=== PATIENT | female | born 2000 | race Caucasian/White ===

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

== ENCOUNTER 2020-07-03 05:11 | Inpatient (IN) | payer MEDICAID ==
[2020-07-03] MEDS: Lactated Ringers 1,000 ML IV SCH ×4 (06:40→16:45)
--- NOTE | 2020-07-03 06:43 | PCM.PREANE ---
Preanesthetic Assessment - Anesthesia/Transfusion/Family Hx Anesthesia History: Prior Anesthesia Without Reaction Other Type of Anesthesia Reaction Comment: "my mother woke up during her c/section" Family History of Anesthesia Reaction: No Transfusion History: No Prior Transfusion(s) Intubation History: Unknown - Review of Systems General: No Symptoms Pulmonary: No Symptoms Cardiovascular: No Symptoms Gastrointestinal: No Symptoms Neurological: No Symptoms Other: Reports: None - Physical Assessment Height: 5 ft 3 in Weight: 101.151 kg ASA Class: 2 Mental Status: Alert & Oriented x3 Airway Class: Mallampati = 2 Dentition: Reports: Normal Dentition Thyro-Mental Finger Breadths: 3 Mouth Opening Finger Breadths: 2 ROM/Head Extension: Full Lungs: Clear to Auscultation, Normal Respiratory Effort Cardiovascular: Regular Rate, Regular Rhythm - Allergies Allergies/Adverse Reactions: Allergies Allergy/AdvReac Type Severity Reaction Status Date / Time diclofenac Allergy Rash Verified 06/27/20 07:40 tramadol Allergy Hives Verified 06/27/20 07:40 - Blood Blood Available: No - Anesthesia Plan Pre-Op Medication Ordered: None - Acknowledgements Anesthesia Type Planned: Spinal (general anesthesia back-up plan) Pt an Appropriate Candidate for the Planned Anesthesia: Yes Alternatives and Risks of Anesthesia Discussed w Pt/Guardian: Yes Pt/Guardian Understands and Agrees with Anesthesia Plan: Yes PreAnesthesia Questionnaire - Past Health History Medical/Surgical History: Denies Medical/Surgical History HEENT History: Reports: None Cardiovascular History: Reports: None Respiratory History: Reports: None Gastrointestinal History: Reports: GERD Genitourinary History: Reports: None [place] F[employer] History: Reports: 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, 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 History: Reports: Fracture Other 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 History: hx of fx finger Neurological History: Reports: None Psychiatric History: Reports: Anxiety, Depression, PTSD Endocrine/Metabolic History: Reports: Obesity/BMI 30+ Hematologic History: Reports: None Immunologic History: Reports: None Oncologic (Cancer) History: Reports: None Dermatologic History: Reports: Eczema - Infectious Disease History Infectious Disease History: Reports: None Other Infectious Disease History: chlyamida - Past Surgical History Head Surgeries/Procedures: Reports: None HEENT Surgical History: Reports: Adenoidectomy, Myringotomy w Tube(s), Tonsillectomy Cardiovascular Surgical History: Reports: None Respiratory Surgical History: Reports: None GI Surgical History: Reports: Appendectomy, Cholecystectomy Female Surgical History: Reports: Section Other Female Surgeries/Procedures: laparoscopy with ovarian cystectomy Endocrine Surgical History: Reports: None Neurological Surgical History: Reports: Laminectomy 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 Surgical History: Reports: None Oncologic Surgical History: Reports: None - SUBSTANCE USE Tobacco Use Status *Q: Light Tobacco User Tobacco Use Within Last Twelve Months: Cigarettes - HOME MEDS Home Medications: Home Meds Pnv No.95/Ferrous Fum/Folic AC [ Vitamin Tablet] 1 tab PO DAILY 06/27/20 [History]
[2020-07-03] MEDS ORDERED: ceFAZolin 2 GM in Premix Bag 1 BAG IV ONE (06:54)
[2020-07-03] MEDS ORDERED: Sodium Chloride 0.9% 10 ML Syringe FLUSH PRN (06:54)
[2020-07-03] MEDS ORDERED: Citric Acid/Sodium Citrate Solution 30 ML Cup PO ONE (06:54)
[2020-07-03] MEDS ORDERED: Sodium Chloride 0.9% 2.5 ML Syringe FLUSH PRN (06:54)
[2020-07-03] MEDS ORDERED: Sodium Chloride 0.9% 10 ML SDV IV PRN (06:54)
[2020-07-03] MEDS ORDERED: Oxytocin/0.9 % Sodium Chloride 30 UNIT/500 ML BAG IV SCH (07:00)
[2020-07-03] MEDS ORDERED: Octyl 2-Cyanoacrylate 1 Tube ONE (07:33)
[2020-07-03] MEDS ORDERED: Morphine PF 10 MG/10 ML SDV ONE (07:45)
[2020-07-03] MEDS ORDERED: ceFAZolin/Dextrose,Iso-Osmotic 2 GM/50 ML Duplex Bag IV ONE (07:45)
--- NOTE | 2020-07-03 08:00 | PCM.LDHP ---
L&D History of Present Illness - General Date of Service: 07/03/20 Admit Problem/Dx: Patient Status Order with Admit Dx/Problem 07/03/20 06:54 Patient Status [ADT] Routine Admission Diagnosis/Problem Admission Diagnosis/Problem Source of Information: Patient History Limitations: Reports: No Limitations - History of Present Illness Introduction:: 19yo @ 39w GA here for scheduled . H/o prior emergency for distress. Patient smokes 3-4cig per day. This was otherwise uncomplicated. Denies Ctx, VB, LOF A positive, RI, GBS negative. 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: Reports: 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, 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 History: Reports: Fracture Other 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 History: hx of fx finger Neurological History: Reports: None Psychiatric History: Reports: Anxiety, Depression, PTSD Endocrine/Metabolic History: Reports: Obesity/BMI 30+ Hematologic History: Reports: None Immunologic History: Reports: None Oncologic (Cancer) History: Reports: None Dermatologic History: Reports: Eczema - Infectious Disease History Infectious Disease History: Reports: None Other Infectious Disease History: chlyamida - Past Surgical History Head Surgeries/Procedures: Reports: None HEENT Surgical History: Reports: Adenoidectomy, Myringotomy w Tube(s), Tonsillectomy Cardiovascular Surgical History: Reports: None Respiratory Surgical History: Reports: None GI Surgical History: Reports: Appendectomy, Cholecystectomy Female Surgical History: Reports: Section Other Female Surgeries/Procedures: laparoscopy with ovarian cystectomy Endocrine Surgical History: Reports: None 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 Surgical History: Reports: None Oncologic Surgical History: Reports: None Social & Family History - Family History Family Medical History: No Pertinent Family History HEENT: Reports: None Cardiac: Reports: MA Respiratory: Reports: Asthma GI: Reports: Cholelithiasis : Reports: None OBGYN: Reports: 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, 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: Reports: None Neurological: Reports: None Psychiatric: Reports: Anxiety, Depression Endocrine/Metabolic: Reports: Diabetes, Type I, Diabetes, type II Hematologic: Reports: None Immunologic: Reports: None Dermatologic: Reports: Eczema Oncologic: Reports: Breast - Tobacco Use Tobacco Use Status *Q: Current Every Day Tobacco User Years of Tobacco use: 9 Packs/Tins Daily: 0.2 Second Hand Smoke Exposure: No - Caffeine Use Caffeine Use: Reports: Soda - Recreational Drug Use Recreational Drug Use: No Drug Use in Last 12 Months: No H&P Review of Systems - Review of Systems: Review Of Systems: See Below General: Reports: No Symptoms HEENT: Reports: No Symptoms Pulmonary: Reports: No Symptoms Cardiovascular: Reports: No Symptoms Gastrointestinal: Reports: No Symptoms Genitourinary: Reports: No Symptoms 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: Reports: No Symptoms Skin: Reports: No Symptoms Psychiatric: Reports: No Symptoms Neurological: Reports: No Symptoms Hematologic/Lymphatic: Reports: No Symptoms Immunologic: Reports: No Symptoms L&D Exam - Exam Exam: See Below - Vital Signs Weight: 108.862 kg - OB Specific Contraction Intensity: Irritability Movement: Active Heart Tones: Present Heart Tones per Min: 132 Heart Rate (FHR) Variability: Moderate (6-25 bmp) Presentation: Vertex Estimated Weight: 8lbs - Exam General: Alert, Oriented Lungs: Normal Respiratory Effort Cardiovascular: Regular Rate GI/Abdominal Exam: Soft Extremities: Normal Inspection Psychiatric: Alert, Normal Affect, Normal Mood - Patient Data Lab Results Last 24 hrs: Laboratory Results - last 24 hr 07/03/20 07/03/20 Range/Units 06:05 06:05 WBC 13.85 H (4.0-11.0) K/uL RBC 4.04 L (4.30-5.90) M/uL Hgb 11.9 L (12.0-16.0) g/dL Hct 36.1 (36.0-46.0) % MCV 89.4 (80.0-98.0) fL MCH 29.5 (27.0-32.0) pg MCHC 33.0 (31.0-37.0) g/dL RDW Std Deviation 43.0 (28.0-62.0) fl RDW Coeff of [place] 13 (11.0-15.0) % Plt Count 242 (150-400) K/uL MPV 10.20 (7.40-12.00) fL Nucleated RBC % 0.0 /100WBC Nucleated RBCs # 0 K/uL Blood Type A POSITIVE Antibody Screen NEGATIVE Result Diagrams: 07/03/20 06:05 - Problem List (1) Term SNOMED Code(s): 52286405 ICD Code: Z34.90 - ENCNTR FOR SUPRVSN OF NORMAL , UNSP, UNSP TRIMESTER Status: Acute Priority: High Current Visit: Yes (2) Previous section SNOMED Code(s): 017008619 ICD Code: Z98.891 - HISTORY OF UTERINE SCAR FROM PREVIOUS SURGERY Status: Acute Priority: High Current Visit: Yes Problem List Initiated/Reviewed/Updated: Yes Orders Last 24hrs: 19yo @ 39WGA here for repeat . Consents signed Routine pre-op orders placed. Active Orders 24 hr Category Date Time Status Patient Status [ADT] Routine ADT 07/03/20 06:54 Active Non Stress Test [RC] PER UNIT ROUTINE Care 07/03/20 06:54 Active Notify Provider Vital Signs [RC] PRN Care 07/03/20 06:56 Active Procedure Site Prep Instruct [RC] ASDIRECTED Care 07/03/20 06:54 Active Up ad [place] [RC] ASDIRECTED Care 07/03/20 06:54 Active Verify Patient Consent Obtain [RC] ASDIRECTED Care 07/03/20 06:54 Active Vital Signs [RC] PER UNIT ROUTINE Care 07/03/20 06:54 Active RPR (SYPHILIS SERO) W/ RFLX [REF] Routine Lab 07/03/20 06:05 Received Lactated Ringers [Ringers, Lactated] 1,000 ml Med 07/03/20 07:00 Active IV BOLUS Oxytocin/0.9 % Sodium Chloride [Oxytocin 30 Unit/500 ML Med 07/03/20 07:00 Active -NS] 30 unit in 500 ml IV TITRATE Sodium Chloride 0.9% [Normal Saline] Med 07/03/20 06:54 Active 10 ml IV ASDIRECTED PRN Sodium Chloride 0.9% [Saline Flush] Med 07/03/20 06:54 Active 10 ml FLUSH ASDIRECTED PRN Sodium Chloride 0.9% [Saline Flush] Med 07/03/20 06:54 Active 2.5 ml FLUSH ASDIRECTED PRN Peripheral IV Insertion Adult [OM.PC] Routine Oth 07/03/20 06:54 Ordered Schedule Procedure [COMM] Per Unit Routine Oth 07/03/20 06:54 Ordered Resuscitation Status Routine Resus Stat 07/03/20 06:54 Ordered Medication Orders Oxytocin/Sodium Chloride (Oxytocin 30 Unit/500 Ml-Ns) 30 unit in 500 mls @ 250 mls/hr IV TITRATE CLARA Lactated Ringer's (Ringers, Lactated) 1,000 mls @ 500 mls/hr IV BOLUS CLARA Last Admin: 07/03/20 07:30 Dose: 999 mls/hr Documented by: Infusion: 07/03/20 07:30 Dose: 999 mls/hr Documented by: Admin: 07/03/20 06:40 Dose: 999 mls/hr Documented by: CRISTINA Sodium Chloride (Saline Flush) 10 ml FLUSH ASDIRECTED PRN PRN Reason: Keep Vein Open Sodium Chloride (Saline Flush) 2.5 ml FLUSH ASDIRECTED PRN PRN Reason: Keep Vein Open Sodium Chloride (Normal Saline) 10 ml IV ASDIRECTED PRN PRN Reason: IV Use
[2020-07-03] MEDS ORDERED: ePHEDrine 50 MG/ML SDV ONE (08:20)
[2020-07-03] MEDS ORDERED: Ondansetron 4 MG/2 ML SDV ONE (08:20)
[2020-07-03] MEDS ORDERED: diphenhydrAMINE 50 MG/ML SDV IVPUSH PRN ×2 (08:33→08:51)
[2020-07-03] MEDS ORDERED: Naloxone 0.4 MG/ML Syringe IVPUSH PRN (08:33)
[2020-07-03] MEDS ORDERED: Acetaminophen/HYDROcodone 325-5 MG Tab PO PRN (08:35)
[2020-07-03] MEDS ORDERED: Acetaminophen/oxyCODONE 325-5 MG Tab PO PRN ×2 (08:35→08:51)
--- NOTE | 2020-07-03 08:44 | PCM.SN.2 ---
- Free Text/Narrative Note: Patient in sitting position for spinal. Spinal done with sterile technique. Patient's back prepped with chlohexidine and draped. 1% lidocaine 3 ml for skin infiltration at l3-l4. 25 gauge pencan +csf, no heme, no paresthesias. 0.75% hyperbaric bupivacaine 1.5 ml with duramorph 0.2 mg given intrathecally at 0804. T6 level. patient was able to communicate throughout the entire procedure and tolerated it very well. 2 attempts.
[2020-07-03] MEDS ORDERED: Dexamethasone 4 MG/ML 5 ML MDV ONE (08:46)
[2020-07-03] MEDS ORDERED: Methylergonovine 0.2 MG/1 ML Amp IM PRN (08:51)
[2020-07-03] MEDS ORDERED: Ibuprofen 800 MG Tab PO PRN (08:51)
[2020-07-03] MEDS ORDERED: Lanolin 100% Cream 7 GM Tube TOP PRN (08:51)
[2020-07-03] MEDS ORDERED: Bisacodyl 10 MG Supp RECTAL PRN (08:51)
[2020-07-03] MEDS ORDERED: Oxytocin 10 Units/1 ML SDV IM PRN (08:51)
[2020-07-03] MEDS ORDERED: Tranexamic Acid 1,000 MG in Sodium Chloride 0.9% 100 ML IV PRN (08:51)
[2020-07-03] MEDS ORDERED: Misoprostol 200 MCG Tab RECTAL PRN (08:51)
--- NOTE | 2020-07-03 08:51 | PCM.OPNOTE ---
- General Post-Op/Procedure Note Date of Surgery/Procedure: 07/03/20 Operative Procedure(s): Repeat C/section. Pre Op Diagnosis: [id number] previous C/section. Post-Op Diagnosis: Same Anesthesia Technique: Spinal Primary Surgeon: Domenico Prather Flat Ironer: Niesha Lieberman EBL in mLs: 750 Complications: None Condition: Good
--- NOTE | 2020-07-03 10:29 | PCM.POSTAN ---
POST ANESTHESIA ASSESSMENT - MENTAL STATUS Mental Status: Alert, Oriented - RESPIRATORY Respiratory Status: Respiratory Rate WNL, Airway Patent, O2 Saturation Stable - CARDIOVASCULAR CV Status: Pulse Rate WNL, Blood Pressure Stable - GASTROINTESTINAL GI Status: No Symptoms - PAIN Pain Score: 2 - POST OP HYDRATION Hydration Status: Adequate & Stable - OBSERVATIONS Free Text/Narrative:: The patient appears comfortable and in no acute distress. There were no apparent anesthetic complications at this time. Discharge to floor per criteria.
--- NOTE | 2020-07-03 11:24 | OR ---
SURGEON: Domenico Prather MD DATE OF PROCEDURE: 07/03/2020 PREOPERATIVE DIAGNOSIS: Intrauterine at 39 weeks, previous section. POSTOPERATIVE DIAGNOSIS: Intrauterine at 39 weeks, previous section. OPERATION PERFORMED: Repeat low transverse section. EDGE DYER: Niesha Lieberman, certified nurse gold leaf printer. ANESTHESIA: Spinal, Dr. Lieberman and Lyndsay Sal. ESTIMATED BLOOD LOSS: 750 mL. COMPLICATIONS: None. FINDING: Male fetus. score reported to be 8 and 9. The weight is not available. Normal uterus, tubes, and ovaries. INDICATION FOR SURGERY: The patient had a previous section. She is admitted for elective repeat section. PROCEDURE IN DETAIL: Patient was brought to the OR, properly identified. After adequate level of spinal anesthesia with a Hilario catheter in the bladder, the patient was prepped and draped in sterile fashion as usual. A low transverse Pfannenstiel skin incision was done through the old scar. Sarah fascia and rectus fascia were opened in direction of the incision. The 2 recti muscles were and peritoneal cavity was entered. Bladder flap was raised in the usual manner pushing the bladder away from the lower uterine segment. A low transverse uterine incision was done and extended manually with the hand. Fetus was in a vertex position, delivered without any problem, cried immediately, and handed to the resuscitating team. Then, the placenta delivered spontaneous, complete, and intact and repair of the lower uterine segment was done with 2-0 Vicryl continuous interlocking in 2 layers. The peritoneal cavity was evacuated completely from all blood and blood clot and closed with 3-0 Vicryl continuous. The rectus fascia was closed with #1 PDS continuous interlocking in double strand and Sarah's fascia with 3-0 Vicryl continuous, the skin was closed with 3-0 in a subcuticular fashion. A DARRELL dressing was used for the dressing on this patient. Instrument and sponge count was correct. The patient tolerated the procedure well, went to recovery room in stable general condition. DOREEN / TYLER /[id number]
[2020-07-03] MEDS: Ketorolac 30 MG/ML SDV IVPUSH SCH ×2 (14:53→21:59)
[2020-07-03] MEDS: Ondansetron 4 MG/2 ML SDV IVPUSH PRN ×2 (16:45→22:07)
[2020-07-03] MEDS ORDERED: Scopolamine 1.5 MG Transdermal Patch TRDERM PRN (20:15)
[2020-07-03] MEDS ORDERED: Metoclopramide 10 MG/2 ML SDV IVPUSH ONE (20:16)
[2020-07-04] MEDS: Lactated Ringers 1,000 ML IV SCH (01:03)
[2020-07-04] MEDS: Ketorolac 30 MG/ML SDV IVPUSH SCH ×3 (04:50→10:58)
--- NOTE | 2020-07-04 08:02 | PCM48HPAN ---
Post Anesthesia Note - EVALUATION WITHIN 48HRS OF ANESTHETIC Vital Signs in Normal Range: Yes Patient Participated in Evaluation: Yes Respiratory Function Stable: Yes Airway Patent: Yes Cardiovascular Function Stable: Yes Hydration Status Stable: Yes Pain Control Satisfactory: Yes Nausea and Vomiting Control Satisfactory: Yes Mental Status Recovered: Yes Vital Signs: Last Vital Signs Temp 37.6 C 07/04/20 04:30 Pulse 64 07/04/20 04:30 Resp 16 07/04/20 06:00 BP 100/40 L 07/04/20 04:30 Pulse Ox 94 L 07/04/20 06:00 - COMMENTS/OBSERVATIONS Free Text/Narrative:: The patient states that her n/v and pain are controlled with medications. However, the benadryl has not helped and nubain is not available due to a national shortage. The patient understands and is able to tolerate the itching at this time. She has no other complaints. She is discharged from anesthesia care.
--- NOTE | 2020-07-04 09:23 | PCM.PNPP ---
- General Info Date of Service: 07/04/20 Functional Status: Reports: Pain Controlled - Review of Systems General: Reports: No Symptoms HEENT: Reports: No Symptoms Pulmonary: Reports: No Symptoms Cardiovascular: Reports: No Symptoms Gastrointestinal: Reports: No Symptoms Genitourinary: Reports: No Symptoms 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: Reports: No Symptoms Skin: Reports: No Symptoms Neurological: Reports: No Symptoms Psychiatric: Reports: No Symptoms - General Info Date of Service: 07/04/20 - Patient Data Vital Signs - Most Recent: Last Vital Signs Temp 36.6 C 07/04/20 07:54 Pulse 56 L 07/04/20 07:54 Resp 20 07/04/20 07:54 BP 101/55 L 07/04/20 09:00 Pulse Ox 96 07/04/20 07:54 Weight - Most Recent: 108.862 kg I&O - Last 24 Hours: Intake & Output 07/03/20 07/04/20 07/04/20 22:59 06:59 14:59 Output Total 2150 725 Balance -2150 -725 Lab Results - Last 24 Hours: Laboratory Results - last 24 hr 07/04/20 Range/Units 05:44 Hgb 9.7 L (12.0-16.0) g/dL Hct 29.9 L (36.0-46.0) % Med Orders - Current: Current Medications Hydrocodone Bitart/Acetaminophen ([place] 325-5 Mg) 2 tab PO Q6H PRN PRN Reason: Pain (moderate 4-6) Bisacodyl (Dulcolax) 10 mg RECTAL ONETIME PRN PRN Reason: Constipation Diphenhydramine HCl (Benadryl) 25 mg IVPUSH Q6H PRN PRN Reason: Itching or Nausea Docusate Sodium (Colace) 100 mg PO BID CLARA Emollient Ointment (Lansinoh Hpa) 0 gm TOP ASDIRECTED PRN PRN Reason: Sore Nipples Oxytocin/Sodium Chloride (Oxytocin 30 Unit/500 Ml-Ns) 30 unit in 500 mls @ 250 mls/hr IV TITRATE CLARA Lactated Ringer's (Ringers, Lactated) 1,000 mls @ 500 mls/hr IV BOLUS [facility] Last Admin: 07/03/20 07:30 Dose: 999 mls/hr Documented by: Lactated Ringer's (Ringers, Lactated) 1,000 mls @ 125 mls/hr IV ASDIRECTED CLARA Last Admin: 07/04/20 01:03 Dose: 125 mls/hr Documented by: Tranexamic Acid 1,000 mg/ (Sodium Chloride) 110 mls @ 660 mls/hr IV ONETIME PRN PRN Reason: Bleeding Ibuprofen (Motrin) 800 mg PO Q8H PRN PRN Reason: mild pain or fever Methylergonovine Maleate (Methergine) 0.2 mg IM ONETIME PRN PRN Reason: Excessive Vaginal Bleeding Misoprostol (Cytotec) 1,000 mcg RECTAL ONETIME PRN PRN Reason: excessive bleeding Ondansetron HCl (Zofran) 4 mg IVPUSH Q4H PRN PRN Reason: Nausea/Vomiting Last Admin: 07/03/20 22:07 Dose: 4 mg Documented by: Oxycodone/Acetaminophen (Percocet 325-5 Mg) 1 tab PO ONETIME PRN PRN Reason: Pain (moderate 4-6) Oxycodone/Acetaminophen (Percocet 325-5 Mg) 1 tab PO Q4H PRN PRN Reason: Pain (moderate 4-6) Oxycodone/Acetaminophen (Percocet 325-5 Mg) 2 tab PO Q4H PRN PRN Reason: Pain (moderate 4-6) Oxytocin (Pitocin) 10 unit IM ASDIRECTED PRN PRN Reason: Excessive Vaginal Bleeding Scopolamine (Transderm-Scop) 1.5 mg TRDERM Q72H PRN PRN Reason: Nausea/Vomiting Last Admin: 07/03/20 20:41 Dose: 1.5 mg Documented by: Sodium Chloride (Saline Flush) 10 ml FLUSH ASDIRECTED PRN PRN Reason: Keep Vein Open Sodium Chloride (Saline Flush) 2.5 ml FLUSH ASDIRECTED PRN PRN Reason: Keep Vein Open Sodium Chloride (Normal Saline) 10 ml IV ASDIRECTED PRN PRN Reason: IV Use Discontinued Medications Cefazolin Sodium/Dextrose (Ancef) Confirm Administered Dose 2 gm IV .STK-MED ONE Stop: 07/03/20 07:46 Citric Acid/Sodium Citrate (Bicitra Solution) 30 ml PO ONETIME ONE Stop: 07/03/20 06:55 Last Admin: 07/03/20 07:49 Dose: 30 ml Documented by: Dexamethasone (Dexamethasone) Confirm Administered Dose 20 mg .ROUTE .STK-MED ONE Stop: 07/03/20 08:47 Diphenhydramine HCl (Benadryl) 25 mg IVPUSH Q4H PRN PRN Reason: Itching Stop: 07/04/20 08:34 Last Admin: 07/04/20 00:59 Dose: 25 mg Documented by: Ephedrine Sulfate (Ephedrine Sulfate) Confirm Administered Dose 50 mg .ROUTE .STK-MED ONE Stop: 07/03/20 08:21 Cefazolin Sodium/Dextrose 2 gm (/ Premix) 50 mls @ 100 mls/hr IV ONETIME ONE Stop: 07/03/20 07:23 Ketorolac Tromethamine (Toradol) 30 mg IVPUSH Q6H CLARA Stop: 07/04/20 09:01 Last Admin: 07/04/20 04:50 Dose: 30 mg Documented by: Metoclopramide HCl (Reglan) 10 mg IVPUSH ONETIME ONE Stop: 07/03/20 20:17 Last Admin: 07/03/20 20:42 Dose: 10 mg Documented by: Morphine Sulfate (Duramorph Pf) Confirm Administered Dose 10 mg .ROUTE .STK-MED ONE Stop: 07/03/20 07:46 Naloxone HCl (Narcan) 0.1 mg IVPUSH ONETIME PRN PRN Reason: Respiratory Depression Stop: 07/04/20 08:34 Octyl Cyanoacrylate (Dermabond Advance) Confirm Administered Dose 1 applic .ROUTE .STK-MED ONE Stop: 07/03/20 07:34 Ondansetron HCl (Zofran) Confirm Administered Dose 4 mg .ROUTE .STK-MED ONE Stop: 07/03/20 08:21 - Interaction Infant Disposition, : in Room with Family Interaction: Holding Infant Feeding: Attempted ; Nursed Fair/Poor Support Person: Significant Other - Recovery Exam Fundal Tone: Firm Fundal Level: At Umbilicus Fundal Placement: Midline Lochia Amount: Scant Lochia Color: Rubra/Red Bladder Status: Indwelling Catheter in Place - Exam General: Alert, Oriented HEENT: Pupils Equal Neck: Supple Lungs: Clear to Auscultation, Normal Respiratory Effort Cardiovascular: Regular Rate, Regular Rhythm GI/Abdominal Exam: Normal Bowel Sounds, Soft, Non-Tender, No Organomegaly, No Distention, No Abnormal Bruit, No Mass, Pelvis Stable Extremities: Normal Inspection, Normal Range of Motion, Non-Tender, No Pedal Edema, Normal Capillary Refill Skin: Warm, Dry, Intact Wound/Incisions: Healing Well Neurological: No New Focal Deficit Psy/Mental Status: Alert, Normal Affect, Normal Mood - Problem List Review Problem List Initiated/Reviewed/Updated: Yes - My Orders Last 24 Hours: My Active Orders 07/03/20 08:51 Patient Status [ADT] Routine Ambulate [RC] PER UNIT ROUTINE Communication Order [RC] PER UNIT ROUTINE Communication Order [RC] PER UNIT ROUTINE Communication Order [RC] Per Unit Routine May Shower [RC] ASDIRECTED RT Incentive Spirometry [RC] Q2HWA Vital Signs [RC] PER UNIT ROUTINE Acetaminophen/oxyCODONE [Percocet 325-5 MG] 1 tab PO Q4H PRN Acetaminophen/oxyCODONE [Percocet 325-5 MG] 2 tab PO Q4H PRN Ibuprofen [Motrin] 800 mg PO Q8H PRN Lanolin [Lansinoh HPA] See Dose Instructions TOP ASDIRECTED PRN Methylergonovine [Methergine] 0.2 mg IM ONETIME PRN Ondansetron [Zofran] 4 mg IVPUSH Q4H PRN Oxytocin [Pitocin] 10 unit IM ASDIRECTED PRN Tranexamic Acid [Cyklokapron] 1,000 mg Sodium Chloride 0.9% [Normal Saline] 100 ml IV ONETIME bisacodyL [Dulcolax] 10 mg RECTAL ONETIME PRN diphenhydrAMINE [Benadryl] 25 mg IVPUSH Q6H PRN miSOPROStoL [Cytotec] 1,000 mcg RECTAL ONETIME PRN Assess Lochia [WOMSER] Per Unit Routine Assess Uterine Involution [WOMSER] Per Unit Routine Breast Pump [WOMSER] Per Unit Routine Peripheral IV Discontinue [OM.PC] Routine Sequential Compression Device [OM.PC] Per Unit Routine 07/03/20 08:52 Antiembolic Devices [RC] PER UNIT ROUTINE 07/03/20 09:00 Docusate Sodium [Colace] 100 mg PO BID Lactated Ringers [Ringers, Lactated] 1,000 ml IV ASDIRECTED - Assessment Assessment:: Status post repeat section doing well day #1 postoperative day #1 the patient is ambulatory and we are planning for her activity discharge in a.m.
[2020-07-04] MEDS: Docusate Sodium 100 MG Cap PO SCH ×2 (09:29→09:41)
--- NOTE | 2020-07-04 12:02 | PCM.DCSUM1 ---
Discharge Summary - Hospital Course Diagnosis: Stroke: No - Discharge Data Discharge Date: 07/04/20 Discharge Disposition: Home, Self-Care 01 Condition: Good - Referral to Home Health Primary Care Physician: [facility] - Patient Summary/Data Operative Procedure(s) Performed: Repeat C/section. - Patient Instructions Diet: Usual Diet as Tolerated Activity: As Tolerated - Discharge Plan Home Medications: Home Meds Pnv No.95/Ferrous Fum/Folic AC [ Vitamin Tablet] 1 tab PO DAILY 06/27/20 [History] Referrals: [facility] [Outside] Domenico Prather MD [Physician] - (1 week -July 09@ 9:30am w/ Dr. Prather week- August 13@ 1:30pm w/ Dr. Prather ) - Discharge Summary/Plan Comment DC Time >30 min.: Yes - General Info Date of Service: 07/04/20 Functional Status: Reports: Pain Controlled - Review of Systems General: Reports: No Symptoms HEENT: Reports: No Symptoms Pulmonary: Reports: No Symptoms Cardiovascular: Reports: No Symptoms Gastrointestinal: Reports: No Symptoms Genitourinary: Reports: No Symptoms 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: Reports: No Symptoms Skin: Reports: No Symptoms Neurological: Reports: No Symptoms Psychiatric: Reports: No Symptoms - Patient Data Vitals - Most Recent: Last Vital Signs Temp 36.6 C 07/04/20 07:54 Pulse 56 L 07/04/20 07:54 Resp 20 07/04/20 07:54 BP 101/55 L 07/04/20 09:00 Pulse Ox 96 07/04/20 07:54 Weight - Most Recent: 108.862 kg I&O - Last 24 hours: Intake & Output 07/03/20 07/04/20 07/04/20 22:59 06:59 14:59 Intake Total 1986 Output Total 0 725 Balance -0 [id number] Lab Results - Last 24 hrs: Laboratory Results - last 24 hr 07/04/20 Range/Units 05:44 Hgb 9.7 L (12.0-16.0) g/dL Hct 29.9 L (36.0-46.0) % Med Orders - Current: Current Medications Hydrocodone Bitart/Acetaminophen ([place] 325-5 Mg) 2 tab PO Q6H PRN PRN Reason: Pain (moderate 4-6) Bisacodyl (Dulcolax) 10 mg RECTAL ONETIME PRN PRN Reason: Constipation Diphenhydramine HCl (Benadryl) 25 mg IVPUSH Q6H PRN PRN Reason: Itching or Nausea Docusate Sodium (Colace) 100 mg PO BID [facility] Last Admin: 07/04/20 09:41 Dose: 100 mg Documented by: Emollient Ointment (Lansinoh Hpa) 0 gm TOP ASDIRECTED PRN PRN Reason: Sore Nipples Oxytocin/Sodium Chloride (Oxytocin 30 Unit/500 Ml-Ns) 30 unit in 500 mls @ 250 mls/hr IV TITRATE [facility] Lactated Ringer's (Ringers, Lactated) 1,000 mls @ 500 mls/hr IV BOLUS [facility] Last Admin: 07/03/20 07:30 Dose: 999 mls/hr Documented by: Lactated Ringer's (Ringers, Lactated) 1,000 mls @ 125 mls/hr IV ASDIRECTED [facility] Last Admin: 07/04/20 01:03 Dose: 125 mls/hr Documented by: Tranexamic Acid 1,000 mg/ (Sodium Chloride) 110 mls @ 660 mls/hr IV ONETIME PRN PRN Reason: Bleeding Ibuprofen (Motrin) 800 mg PO Q8H PRN PRN Reason: mild pain or fever Methylergonovine Maleate (Methergine) 0.2 mg IM ONETIME PRN PRN Reason: Excessive Vaginal Bleeding Misoprostol (Cytotec) 1,000 mcg RECTAL ONETIME PRN PRN Reason: excessive bleeding Ondansetron HCl (Zofran) 4 mg IVPUSH Q4H PRN PRN Reason: Nausea/Vomiting Last Admin: 07/03/20 22:07 Dose: 4 mg Documented by: Oxycodone/Acetaminophen (Percocet 325-5 Mg) 1 tab PO ONETIME PRN PRN Reason: Pain (moderate 4-6) Oxycodone/Acetaminophen (Percocet 325-5 Mg) 1 tab PO Q4H PRN PRN Reason: Pain (moderate 4-6) Oxycodone/Acetaminophen (Percocet 325-5 Mg) 2 tab PO Q4H PRN PRN Reason: Pain (moderate 4-6) Oxytocin (Pitocin) 10 unit IM ASDIRECTED PRN PRN Reason: Excessive Vaginal Bleeding Scopolamine (Transderm-Scop) 1.5 mg TRDERM Q72H PRN PRN Reason: Nausea/Vomiting Last Admin: 07/03/20 20:41 Dose: 1.5 mg Documented by: Sodium Chloride (Saline Flush) 10 ml FLUSH ASDIRECTED PRN PRN Reason: Keep Vein Open Sodium Chloride (Saline Flush) 2.5 ml FLUSH ASDIRECTED PRN PRN Reason: Keep Vein Open Sodium Chloride (Normal Saline) 10 ml IV ASDIRECTED PRN PRN Reason: IV Use Discontinued Medications Cefazolin Sodium/Dextrose (Ancef) Confirm Administered Dose 2 gm IV .STK-MED ONE Stop: 07/03/20 07:46 Citric Acid/Sodium Citrate (Bicitra Solution) 30 ml PO ONETIME ONE Stop: 07/03/20 06:55 Last Admin: 07/03/20 07:49 Dose: 30 ml Documented by: Dexamethasone (Dexamethasone) Confirm Administered Dose 20 mg .ROUTE .STK-MED ONE Stop: 07/03/20 08:47 Diphenhydramine HCl (Benadryl) 25 mg IVPUSH Q4H PRN PRN Reason: Itching Stop: 07/04/20 08:34 Last Admin: 07/04/20 00:59 Dose: 25 mg Documented by: Ephedrine Sulfate (Ephedrine Sulfate) Confirm Administered Dose 50 mg .ROUTE .STK-MED ONE Stop: 07/03/20 08:21 Cefazolin Sodium/Dextrose 2 gm (/ Premix) 50 mls @ 100 mls/hr IV ONETIME ONE Stop: 07/03/20 07:23 Last Admin: 07/04/20 09:28 Dose: Not Given Documented by: Ketorolac Tromethamine (Toradol) 30 mg IVPUSH Q6H CLARA Stop: 07/04/20 09:01 Last Admin: 07/04/20 10:58 Dose: 30 mg Documented by: Metoclopramide HCl (Reglan) 10 mg IVPUSH ONETIME ONE Stop: 07/03/20 20:17 Last Admin: 07/03/20 20:42 Dose: 10 mg Documented by: Morphine Sulfate (Duramorph Pf) Confirm Administered Dose 10 mg .ROUTE .STK-MED ONE Stop: 07/03/20 07:46 Naloxone HCl (Narcan) 0.1 mg IVPUSH ONETIME PRN PRN Reason: Respiratory Depression Stop: 07/04/20 08:34 Octyl Cyanoacrylate (Dermabond Advance) Confirm Administered Dose 1 applic .ROUTE .STK-MED ONE Stop: 07/03/20 07:34 Last Admin: 07/04/20 09:29 Dose: Not Given Documented by: Ondansetron HCl (Zofran) Confirm Administered Dose 4 mg .ROUTE .STK-MED ONE Stop: 07/03/20 08:21 - Exam General: Reports: Alert, Oriented HEENT: Reports: Pupils Equal, Pupils Reactive, EOMI, Mucous Membr. Moist/[place] Neck: Reports: Supple Lungs: Reports: Clear to Auscultation, Normal Respiratory Effort Cardiovascular: Reports: Regular Rate, Regular Rhythm GI/Abdominal Exam: Normal Bowel Sounds, Soft, Non-Tender, No Organomegaly, No Distention, No Abnormal Bruit, No Mass, Pelvis Stable (Female) Exam: Normal External Exam, Normal Speculum Exam, Normal Bimanual Exam Rectal (Female) Exam: Normal Exam, Normal Rectal Tone Back Exam: Reports: Normal Inspection, Full Range of Motion Extremities: Normal Inspection, Normal Range of Motion, Non-Tender, No Pedal Edema, Normal Capillary Refill Skin: Reports: Warm, Dry, Intact Wound/Incisions: Reports: Healing Well Neurological: Reports: No New Focal Deficit Psy/Mental Status: Reports: Alert, Normal Affect, Normal Mood
[2020-07-04] MEDS: Acetaminophen/oxyCODONE 325-5 MG Tab PO PRN ×2 (13:10→17:27)
--- OUTSIDE RECORDS SUMMARY | 2020-07-04 14:09 | XMSREPORT ---
:2000 Author Organization [facility] Address [address] [place] [id number] Phone Reason For Referral No Reason for Referral was given. History Of Present Illness No HPI available. Assessments No Assessments available Plan of Care Name Dates Details Planned Observations Hospital Referral Request
[2020-07-04 15:20] VITALS: BP 127/56; PULSE 56
== END 2020-07-04 17:40 | disposition home or self-care (01) | DRG 788 ==
LOC: MW.OB 05:11
PROVIDERS: ADMIT Obstetrics & Gynecology; ATTEND Obstetrics & Gynecology
PROC: 10D00Z1 Extraction of Products of Conception, Low, Open Approach (ICD-10-PCS; principal; 2020-07-03)
DX: O34.211 Maternal care for low transverse scar from previous cesarean delivery (principal); O99.334 Smoking (tobacco) complicating childbirth; F17.210 Nicotine dependence, cigarettes, uncomplicated; O99.214 Obesity complicating childbirth; E66.9 Obesity, unspecified; Z3A.39 39 weeks gestation of pregnancy; Z37.0 Single live birth; Z88.5 Allergy status to narcotic agent; Z88.8 Allergy status to other drugs, medicaments and biological substances
CPT/HCPCS: 01961; 36415; 85014; 85018; 85027; 86592; 86850; 86900; 86901; A9270-GY; J0690; J1100; J1200; J1885; J2270; J2405; J2765; J7120

== ENCOUNTER 2020-10-21 20:14 | Emergency (ER) | payer SELFPAY ==
[2020-10-21] MEDS ORDERED: Ketorolac 15 MG/ML SDV IVPUSH ONE (21:10)
[2020-10-21] MEDS: Ketorolac 15 MG/ML SDV IM ONE ×2 (21:13→21:30)
[2020-10-21] MEDS ORDERED: diphenhydrAMINE 50 MG/ML SDV IVPUSH ONE (21:19)
[2020-10-21] MEDS ORDERED: diphenhydrAMINE 50 MG/ML SDV ONE (21:20)
[2020-10-21] MEDS ORDERED: methylPREDNISolone Sodium Succinate 125 MG/2 ML SDV IVPUSH ONE (21:20)
[2020-10-21] MEDS ORDERED: methylPREDNISolone Sodium Succinate 125 MG/2 ML SDV ONE (21:20)
[2020-10-21 21:27] LABS: BLOOD UREA NITROGEN,BUN 13 mg/dL (7.0-18.0); CARBON DIOXIDE,CO2 24.6 mmol/L (21.0-32.0); CHLORIDE,CL 107 mmol/L (98-107); GLUCOSE RANDOM 96 mg/dL (74-106); POTASSIUM,K 3.7 mmol/L (3.5-5.1); SODIUM,NA 144 mmol/L (136-145)
[2020-10-21] MEDS ORDERED: cefTRIAXone 500 MG in Lidocaine 1% 1 ML IM ONE (22:15)
[2020-10-21] MEDS ORDERED: Doxycycline 100 MG Cap PO ONE (22:16)
[2020-10-21] MEDS ORDERED: metroNIDAZOLE 250 MG Tab PO ONE (22:16)
--- NOTE | 2020-10-21 22:20 | EDM.PDOC ---
ED HPI GENERAL MEDICAL PROBLEM - General Chief Complaint: Abdominal Pain Stated Complaint: area sharp pain Time Seen by Provider: 10/21/20 20:20 - History of Present Illness INITIAL COMMENTS - FREE TEXT/NARRATIVE: CHIEF COMPLAINT(S): Abdominal pain HISTORY OF PRESENT ILLNESS: This is a 20-year-old woman with a past medical history of endometriosis and section in June 2020 who comes to the emergency department with a chief complaint of abdominal pain. She states that she has been experiencing endometriosis pain for the last 2 weeks however she states she has not had a period since July since giving . She lives in [place] visiting family and has been experiencing pain during this time. She describes the pain as sharp, constant rated 8 out of 10 in her lower quadrant along where her serous Angelito section is. She denies any vaginal bleeding but states that she does have some vaginal discharge which is changed from prior. She denies any fever, vomiting, dysuria, hematuria and has tried Tylenol, ibuprofen and Midol without any relief. She states that anytime she moves her pain is exacerbated. She denies any back pain. She states that she is sexually active with one partner REVIEW OF SYSTEMS: Constitutional: Denies fever, chills. Eyes: Denies eye pain Ears, Nose, Mouth, & Throat: Denies earache Cardiovascular: Denies chest pain Respiratory: Denies shortness of breath Gastrointestinal: Denies Nausea, vomiting, diarrhea, hematochezia. Genitourinary: Positive for suprapubic pain and vaginal discharge. Denies hematuria, vaginal bleeding Skin:Denies a rash MSK: Denies joint pain Neurological: Denies blurred vision Psychiatric: Denies depression PAST MEDICAL HISTORY: As per history of present illness and as reviewed below otherwise noncontributory. SURGICAL HISTORY: As per history of present illness and as reviewed below otherwise noncontributory. LMP: July 2020 SOCIAL HISTORY: As per history of present illness and as reviewed below otherwise noncontributory. FAMILY HISTORY: As per history of present illness and as reviewed below otherwise noncontributory. EXAMINATION OF ORGAN SYSTEMS/BODY AREAS: Constitutional: Blood pressure is 113/61, heart rate 71, respiratory rate 18 with an oxygen saturation 97% on room air. Temperature 36.6 General: Overall well-appearing woman who is in no acute distress Psychiatric: Appropriate mood and affect. Eyes: No scleral icterus or conjunctival erythema ENMT: Moist mucous membranes. No pharyngeal erythema Cardiovascular: Regular, rate, and rhythm. No gallops, murmurs, or rubs. Bilateral upper extremity pulses symmetric and intact. No peripheral edema. No JVD. Respiratory: Lungs clear to auscultation bilaterally. No wheezes, rales, or rhonchi. Gastrointestinal: Soft, non-tender, non-distended. Normoactive bowel sounds Genitourinary: Well healed section scar without any erythema, fluctuance, or induration. There is tenderness to palpation along the suprapubic region. No CVA tenderness. Pelvic examination was performed with RN line appliance assembler in presence. Patient had normal female external genitalia. On speculum examination the cervix was not erythematous however there was a whitish discharge. On bimanual examination there was cervical motion tenderness and bilateral adnexal tenderness. 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: Normal range of motion. Skin: No lesions or abrasions. Neurological: Alert, GCS 15 MEDICAL DECISION MAKING AND COURSE IN THE ED WITH INTERPRETATION/REVIEW OF DIAGNOSTIC STUDIES: This is a 20-year-old woman with a past medical history of endometriosis and a section in June who comes to the emergency department with suprapubic abdominal pain with vaginal discharge. At this time I do not believe this is her endometriosis pain as she is not on her period. Given the vaginal discharge and cervical motion tenderness I am concerned about pelvic inflammatory disease versus TOA. Will obtain a transvaginal ultrasound to evaluate. We will obtain a urinalysis, CBC, CMP, hCG and STD screening. We will provide the patient with ceftriaxone IM and doxycycline by mouth. We will provide the patient with Toradol for pain relief. Laboratory: CBC reveals a leukocytosis of 12.59 otherwise unremarkable. CMP is unremarkable. hCG is negative. Trichomonas, Gardnerella and Erica are negative. Urinalysis was a clean catch and was negative for leukocyte esterase, negative for nitrites, and negative for blood. Interpretation: Negative. After administration of Toradol the patient did have itching and a mild urticarial rash. We will provide the patient with IV Benadryl and Solu-Medrol. Will observe the patient. After a period of time the patient stated that she had to leave the emergency department. At this time she was alert and oriented and was apprised of the risk of leaving. I did provide the patient with a prescription for doxycycline to be continued for 14 days. She is to return to the emergency department for further evaluation. Otherwise she needs to follow-up with gynecology. The patient was apprised of the potential risks of leaving the hospital AGAINST MEDICAL ADVICE. They include serious complications, permanent disability, and . At the time of my interview with the patient, the patient was alert, oriented, and capable. I urged the patient to return to the hospital as soon as possible to complete their evaluation and treatment. DISPOSITION: The patient left AGAINST MEDICAL ADVICE CONDITION: Fair PROCEDURES: None FINAL IMPRESSION(S)/DIAGNOSES: 1. Acute pelvic inflammatory disease 2. Acute allergic reaction to Toradol Oj Randall M.D. Incisional Pain Score (Numeric/FACES): 9 - Related Data Allergies Allergy/AdvReac Type Severity Reaction Status Date / Time diclofenac Allergy Rash Verified 10/22/20 04:34 ketorolac [From Toradol] Allergy Rash Verified 10/22/20 04:34 tramadol Allergy Hives Verified 10/22/20 04:34 Home Meds: Home Meds Pnv No.95/Ferrous Fum/Folic AC [ Vitamin Tablet] 1 tab PO DAILY 06/27/20 [History] Doxycycline [Vibra-Tabs] 100 mg PO Q12HR #28 tab 10/21/20 [Rx] Past Medical History - Past Health History Medical/Surgical History: Denies Medical/Surgical History HEENT History: Reports: None Cardiovascular History: Reports: None Respiratory History: Reports: None Gastrointestinal History: Reports: GERD Genitourinary History: Reports: None 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: 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, 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 History: Reports: Fracture Other 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 History: hx of fx finger Neurological History: Reports: None Psychiatric History: Reports: Anxiety, Depression, PTSD Endocrine/Metabolic History: Reports: Obesity/BMI 30+ Hematologic History: Reports: None Immunologic History: Reports: None Oncologic (Cancer) History: Reports: None Dermatologic History: Reports: Eczema - Infectious Disease History Infectious Disease History: Reports: None Other Infectious Disease History: chlyamida - Past Surgical History Head Surgeries/Procedures: Reports: None HEENT Surgical History: Reports: Adenoidectomy, Myringotomy w Tube(s), Tonsillectomy Cardiovascular Surgical History: Reports: None Respiratory Surgical History: Reports: None GI Surgical History: Reports: Appendectomy, Cholecystectomy Female Surgical History: Reports: Section Other Female Surgeries/Procedures: laparoscopy with ovarian cystectomy Endocrine Surgical History: Reports: None Neurological Surgical History: Reports: Laminectomy 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 Surgical History: Reports: None Oncologic Surgical History: Reports: None Social & Family History - Family History Family Medical History: No Pertinent Family History HEENT: Reports: None Cardiac: Reports: CT Respiratory: Reports: Asthma GI: Reports: Cholelithiasis : Reports: None OBGYN: Reports: 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, 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: Reports: None Neurological: Reports: None Psychiatric: Reports: Anxiety, Depression Endocrine/Metabolic: Reports: Diabetes, Type I, Diabetes, type II Hematologic: Reports: None Immunologic: Reports: None Dermatologic: Reports: Eczema Oncologic: Reports: Breast - Tobacco Use Tobacco Use Status *Q: Current Every Day Tobacco User Years of Tobacco use: 10 Packs/Tins Daily: 1 - Caffeine Use Caffeine Use: Reports: Coffee, Energy Drinks, Soda - Recreational Drug Use Recreational Drug Use: No ED ROS GENERAL - Review of Systems Review Of Systems: See Below ED EXAM, GI/ABD - Physical Exam Exam: See Below Course - Vital Signs Last Recorded V/S: Last Vital Signs Temp 36.6 C 10/21/20 20:23 Pulse 54 L 10/21/20 22:14 Resp 18 10/21/20 20:23 BP 102/58 L 10/21/20 22:14 Pulse Ox 100 10/21/20 22:14 - Orders/Labs/Meds Orders: Active Orders 24 hr Category Date Time Status CHLAMYDIA AND GONORRHEA BY TMA Stat Lab 10/21/20 21:50 Received Labs: Laboratory Tests 10/21/20 10/21/20 10/21/20 Range/Units 20:25 20:25 20:40 WBC 12.59 H (4.0-11.0) K/uL RBC 4.80 (4.30-5.90) M/uL Hgb 13.9 (12.0-16.0) g/dL Hct 41.8 (36.0-46.0) % MCV 87.1 (80.0-98.0) fL MCH 29.0 (27.0-32.0) pg MCHC 33.3 (31.0-37.0) g/dL RDW Std Deviation 46.6 (28.0-62.0) fl RDW Coeff of Alka 15 (11.0-15.0) % Plt Count 347 (150-400) K/uL MPV 10.00 (7.40-12.00) fL Neut % (Auto) 61.3 (48.0-80.0) % Lymph % (Auto) 29.9 (16.0-40.0) % Gilmer % (Auto) 7.1 (0.0-15.0) % Eos % (Auto) 1.1 (0.0-7.0) % Baso % (Auto) 0.6 (0.0-1.5) % Neut # (Auto) 7.7 H (1.4-5.7) K/uL Lymph # (Auto) 3.8 H (0.6-2.4) K/uL Gilmer # (Auto) 0.9 H (0.0-0.8) K/uL Eos # (Auto) 0.1 (0.0-0.7) K/uL Baso # (Auto) 0.1 (0.0-0.1) K/uL Nucleated RBC % 0.0 /100WBC Nucleated RBCs # 0 K/uL Sodium 144 (136-145) mmol/L Potassium 3.7 (3.5-5.1) mmol/L Chloride 107 (98-107) mmol/L Carbon Dioxide 24.6 (21.0-32.0) mmol/L BUN 13 (7.0-18.0) mg/dL Creatinine 0.7 (0.6-1.0) mg/dL Est Cr Clr Drug Dosing 104.28 mL/min Estimated GFR (MDRD) > 60.0 ml/min Glucose 96 (74-106) mg/dL Calcium 9.0 (8.5-10.1) mg/dL Total Bilirubin 0.1 L (0.2-1.0) mg/dL AST 21 (15-37) IU/L ALT 37 (14-63) IU/L Alkaline Phosphatase 65 (46-116) U/L Total Protein 7.5 (6.4-8.2) g/dL Albumin 3.5 (3.4-5.0) g/dL Globulin 4.0 (2.6-4.0) g/dL Albumin/Globulin Ratio 0.9 (0.9-1.6) Urine Color Urine Appearance Urine pH (5.0-8.0) Ur Specific [place] (1.001-1.035) Urine Protein (NEGATIVE) mg/dL Urine Glucose (UA) (NEGATIVE) mg/dL Urine Ketones (NEGATIVE) mg/dL Urine Occult Blood (NEGATIVE) Urine Nitrite (NEGATIVE) Urine Bilirubin (NEGATIVE) Urine Urobilinogen (<2.0) EU/dL Ur Leukocyte Esterase (NEGATIVE) Urine HCG, Qual NEGATIVE (NEGATIVE) Erica species DNA (NEGATIVE) Gardnerella DNA Probe (NEGATIVE) Trichomonas DNA Probe (NEGATIVE) 10/21/20 10/21/20 Range/Units 20:40 21:51 WBC (4.0-11.0) K/uL RBC (4.30-5.90) M/uL Hgb (12.0-16.0) g/dL Hct (36.0-46.0) % MCV (80.0-98.0) fL MCH (27.0-32.0) pg MCHC (31.0-37.0) g/dL RDW Std Deviation (28.0-62.0) fl RDW Coeff of Alka (11.0-15.0) % Plt Count (150-400) K/uL MPV (7.40-12.00) fL Neut % (Auto) (48.0-80.0) % Lymph % (Auto) (16.0-40.0) % Gilmer % (Auto) (0.0-15.0) % Eos % (Auto) (0.0-7.0) % Baso % (Auto) (0.0-1.5) % Neut # (Auto) (1.4-5.7) K/uL Lymph # (Auto) (0.6-2.4) K/uL Gilmer # (Auto) (0.0-0.8) K/uL Eos # (Auto) (0.0-0.7) K/uL Baso # (Auto) (0.0-0.1) K/uL Nucleated RBC % /100WBC Nucleated RBCs # K/uL Sodium (136-145) mmol/L Potassium (3.5-5.1) mmol/L Chloride (98-107) mmol/L Carbon Dioxide (21.0-32.0) mmol/L BUN (7.0-18.0) mg/dL Creatinine (0.6-1.0) mg/dL Est Cr Clr Drug Dosing mL/min Estimated GFR (MDRD) ml/min Glucose (74-106) mg/dL Calcium (8.5-10.1) mg/dL Total Bilirubin (0.2-1.0) mg/dL AST (15-37) IU/L ALT (14-63) IU/L Alkaline Phosphatase (46-116) U/L Total Protein (6.4-8.2) g/dL Albumin (3.4-5.0) g/dL Globulin (2.6-4.0) g/dL Albumin/Globulin Ratio (0.9-1.6) Urine Color YELLOW Urine Appearance CLEAR Urine pH 6.0 (5.0-8.0) Ur Specific [place] 1.025 (1.001-1.035) Urine Protein NEGATIVE (NEGATIVE) mg/dL Urine Glucose (UA) NEGATIVE (NEGATIVE) mg/dL Urine Ketones NEGATIVE (NEGATIVE) mg/dL Urine Occult Blood NEGATIVE (NEGATIVE) Urine Nitrite NEGATIVE (NEGATIVE) Urine Bilirubin NEGATIVE (NEGATIVE) Urine Urobilinogen 0.2 (<2.0) EU/dL Ur Leukocyte Esterase NEGATIVE (NEGATIVE) Urine HCG, Qual (NEGATIVE) Erica species DNA NEGATIVE (NEGATIVE) Gardnerella DNA Probe NEGATIVE (NEGATIVE) Trichomonas DNA Probe NEGATIVE (NEGATIVE) Departure - Departure Time of Disposition: 22:19 Disposition: Against Medical Advice 07 Condition: Fair Clinical Impression: PID (acute pelvic inflammatory disease) - Discharge Information *PRESCRIPTION DRUG MONITORING PROGRAM REVIEWED*: No *COPY OF PRESCRIPTION DRUG MONITORING REPORT IN PATIENT JOHNNIE: No Prescriptions: Doxycycline [Vibra-Tabs] 100 mg PO Q12HR #28 tab Instructions: Pelvic Inflammatory Disease, [id number] Referrals: Domenico Prather MD [Primary Care Provider] - Forms: ED Department Discharge Additional Instructions: You were evaluated today on an emergent basis. At this time I do believe you have pelvic inflammatory disease. We were going to and obtain an ultrasound as there can be abscess in your fallopian tubes. At this time he elected to leave AGAINST MEDICAL ADVICE. I did send you a prescription for doxycycline. I would like you to take this twice a day for the next 14 days. You can use [id number] Tylenol and Motrin for pain relief. Please follow-up with aircraft power plant assembler. The patient was apprised of the potential risks of leaving the hospital AGAINST MEDICAL ADVICE. They include serious complications, permanent disability, and . At the time of my interview with the patient, the patient was alert, oriented, and capable. I urged the patient to return to the hospital as soon as possible to complete their evaluation and treatment. [facility] [address] [place] [id number] [facility] [address] [place] [id number] The patient is informed of any results of their evaluation and diagnostic workup and all questions are answered. They are given discharge instructions and return precautions. The patient is stable for discharge. The patient states they unde rstand and agree with the plan and that they will return if their symptoms get worse or if they have any new concerns. The following information is given to patients seen in the emergency department who are being discharged to home. This information is to outline your options for follow-up care. We provide all patients seen in our emergency department with a follow-up referral. The need for follow-up, as well as the timing and circumstances, are variable depending upon the specifics of your emergency department visit. If you don't have a primary care physician on staff, we will provide you with a referral. We always advise you to contact your personal physician following an emergency department visit to inform them of the circumstance of the visit and for follow-up with them and/or the need for any referrals to a consulting specialist. The emergency department will also refer you to a specialist when appropriate. This referral assures that you have the opportunity for follow-up care with a specialist. All of these measure are taken in an effort to provide you with optimal care, which includes your follow-up. Under all circumstances we always encourage you to contact your private physician who remains a resource for coordinating your care. When calling for follow-up care, please make the office aware that this follow-up is from your recent emergency room visit. If for any reason you are refused follow-up, please contact the [facility] Emergency Department at and asked to speak to the emergency department charge nurse. Sepsis Event Note (ED) - Evaluation Sepsis Screening Result: No Definite Risk - Focused Exam Vital Signs: Vital Signs Temp Pulse Resp BP Pulse Ox 10/21/20 22:14 54 L 102/58 L 100 10/21/20 22:12 58 L 114/68 99 10/21/20 21:14 72 108/63 97 10/21/20 21:11 72 107/52 L 99 10/21/20 20:44 68 111/64 97 10/21/20 20:23 36.6 C 71 18 113/61 97 - My Orders Last 24 Hours: My Active Orders 10/21/20 21:50 CHLAMYDIA AND GONORRHEA BY TMA Stat - Assessment/Plan Last 24 Hours: My Active Orders 10/21/20 21:50 CHLAMYDIA AND GONORRHEA BY TMA Stat
[2020-10-21 22:54] VITALS: BP 102/58; PULSE 54
[2020-10-23 12:01] LABS: C.TRACHOMATIS BY TMA Negative (Negative); N.GONORRHOEAE BY TMA Negative (Negative)
== END 2020-10-21 22:42 | disposition left against medical advice (07) ==
LOC: MW.ED 20:14
DX: N73.0 Acute parametritis and pelvic cellulitis (principal); R10.30 Lower abdominal pain, unspecified; T39.8X5A Adverse effect of other nonopioid analgesics and antipyretics, not elsewhere classified, initial encounter; Z88.6 Allergy status to analgesic agent; Z88.5 Allergy status to narcotic agent; E66.9 Obesity, unspecified; Z72.0 Tobacco use
CPT/HCPCS: 36415; 80053; 81003; 81025; 85025; 87480; 87491; 87510; 87591; 87660; 96372; 96374; 96375; 99284; A9270; J0696; J1200; J1885; J2930; 99283

== ENCOUNTER 2021-11-08 22:01 | Emergency (ER) | payer OTHER, MEDICAID ==
[2021-11-08] MEDS ORDERED: HYDROmorphone 1 MG/ML Syringe IVPUSH ONE (22:31)
[2021-11-08] MEDS ORDERED: Sodium Chloride 0.9% 10 ML Syringe FLUSH PRN (22:31)
[2021-11-08] MEDS ORDERED: Sodium Chloride 0.9% 2.5 ML Syringe FLUSH PRN (22:31)
[2021-11-08 22:39] LABS: BLOOD UREA NITROGEN,BUN 12 mg/dL (7.0-18.0); CARBON DIOXIDE,CO2 21.9 mmol/L (21.0-32.0); CHLORIDE,CL 104 mmol/L (98-107); GLUCOSE RANDOM 96 mg/dL (74-106); POTASSIUM,K 3.6 mmol/L (3.5-5.1); SODIUM,NA 139 mmol/L (136-145)
[2021-11-08 22:54] LABS: ACETAMINOPHEN <2.0 ug/mL
[2021-11-08] MEDS ORDERED: Ondansetron 4 MG/2 ML SDV IVPUSH ONE (22:57)
[2021-11-08] MEDS ORDERED: Iopamidol 755 MG/ML 500 ML Multipack Bottle IVPUSH ONE (23:41)
[2021-11-09] MEDS ORDERED: Bacitracin Oint 1 GM U/D Packet TOP STA (00:32)
[2021-11-09] MEDS ORDERED: Acetaminophen/oxyCODONE 325-10 MG Tab PO STA (00:46)
[2021-11-09 00:54] VITALS: BP 130/60; PULSE 75
== END 2021-11-09 00:57 | disposition home or self-care (01) ==
LOC: MW.ED 22:01
DX: S60.222A Contusion of left hand, initial encounter (principal); E66.9 Obesity, unspecified; Z68.41 Body mass index [BMI] 40.0-44.9, adult; Z88.6 Allergy status to analgesic agent; Z88.5 Allergy status to narcotic agent; Z90.49 Acquired absence of other specified parts of digestive tract; V49.40XA Driver injured in collision with unspecified motor vehicles in traffic accident, initial encounter; Y92.410 Unspecified street and highway as the place of occurrence of the external cause
CPT/HCPCS: 36415; 70450; 71260; 72125; 72128; 72131; 73120; 74177; 80053; 80143; 80179; 80307; 84484; 84703; 85025; 85610; 93005; 96374; 96375; 99285; A9270; J1170; J2405; Q9967; 93010; 99284

== ENCOUNTER 2022-02-14 23:11 | Emergency (ER) | payer MEDICAID ==
[2022-02-15 00:36] LABS: CARBON DIOXIDE,CO2 23.2 mmol/L (21.0-32.0); POTASSIUM,K 3.3 mmol/L (3.5-5.1)
[2022-02-15 02:15] VITALS: BP 112/56; PULSE 69
== END 2022-02-15 02:15 | disposition home or self-care (01) ==
LOC: MW.ED 23:11
DX: O20.0 Threatened abortion (principal); Z88.5 Allergy status to narcotic agent; Z88.8 Allergy status to other drugs, medicaments and biological substances; Z3A.01 Less than 8 weeks gestation of pregnancy
CPT/HCPCS: 36415; 76817; 76817-26; 80048; 81003; 81025; 84702; 85025; 85610; 86900; 86901; 99284-25

== ENCOUNTER 2022-03-29 12:23 | Emergency (ER) | payer MEDICAID | END 2022-03-29 12:55 | disposition left against medical advice (07) | LOC: MW.ED 12:23 | DX: Z53.21 Procedure and treatment not carried out due to patient leaving prior to being seen by health care provider (principal) ==

== ENCOUNTER 2022-03-29 15:42 | Emergency (ER) | payer MEDICAID ==
[2022-03-29 18:22] VITALS: BP 118/67; PULSE 68
[2022-03-29 20:23] LABS: CARBON DIOXIDE,CO2 25.2 mmol/L (21.0-32.0); POTASSIUM,K 4.3 mmol/L (3.5-5.1)
== END 2022-03-29 22:09 | disposition home or self-care (01) ==
LOC: MW.ED 15:42
DX: O20.8 Other hemorrhage in early pregnancy (principal); Z3A.12 12 weeks gestation of pregnancy; Z88.6 Allergy status to analgesic agent; Z88.5 Allergy status to narcotic agent
CPT/HCPCS: 36415; 76801; 76801-26; 80048; 81001; 84702; 85025; 86900; 86901; 99283; 99284

== ENCOUNTER 2022-09-02 09:25 | Day surgery (SDC) | payer MEDICAID ==
[~2022-09-02 09:25] MED LIST changes: +Albuterol 0.083% 2.5 MG/3 ML Neb Soln NEB PRN; +HYDROmorphone 1 MG/ML Syringe IVPUSH PRN; -Lactated Ringers 1,000 ML IV SCH; +Metoclopramide 10 MG/2 ML SDV IVPUSH PRN; +Morphine 2 MG/ML SYRINGE IVPUSH PRN; +Naloxone 0.4 MG/ML SDV IVPUSH PRN; +Ondansetron 4 MG/2 ML SDV IVPUSH PRN; -Sodium Chloride 0.9% 10 ML Syringe FLUSH PRN; -Sodium Chloride 0.9% 2.5 ML Syringe FLUSH PRN; +fentaNYL 50 MCG/ML SDV IVPUSH PRN
[2022-09-02] MEDS ORDERED: Ondansetron 4 MG/2 ML SDV ONE ×4 (09:27→13:26)
[2022-09-02] MEDS ORDERED: Scopolamine 1.5 MG Transdermal Patch TRDERM PRN (09:43)
[2022-09-02] MEDS ORDERED: Lactated Ringers 1,000 ML IV SCH (09:45)
[2022-09-02] MEDS ORDERED: Ketorolac 30 MG/ML SDV ONE (11:22)
[2022-09-02] MEDS ORDERED: Lidocaine 2% 5 ML SDV ONE (11:22)
[2022-09-02] MEDS ORDERED: Rocuronium Bromide 50 MG/5 ML Syringe ONE (11:22)
[2022-09-02] MEDS ORDERED: Dexamethasone 4 MG/ML 5 ML MDV ONE (11:22)
[2022-09-02] MEDS ORDERED: Propofol 200 MG/20 ML SDV ONE ×2 (11:25→11:26)
[2022-09-02] MEDS ORDERED: fentaNYL 250 MCG/5 ML SDV ONE (11:25)
[2022-09-02] MEDS ORDERED: Ropivacaine 0.5% 5 MG/ML 30 ML SDV ONE (12:02)
[2022-09-02] MEDS ORDERED: Famotidine 20 MG/2 ML SDV ONE (12:03)
[2022-09-02] MEDS ORDERED: fentaNYL 100 MCG/2 ML SDV ONE (12:04)
[2022-09-02] MEDS ORDERED: HYDROmorphone 2 MG/ML Syringe ONE (13:09)
[2022-09-02] MEDS ORDERED: Atropine 1 MG/ML SDV ONE (14:03)
[2022-09-02 14:32] VITALS: BP 111/56; PULSE 83
== END 2022-09-02 15:05 | disposition home or self-care (01) ==
LOC: MW.SDS 09:25
PROVIDERS: ATTEND Obstetrics & Gynecology
DX: N80.9 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, unspecified (principal); F41.9 Anxiety disorder, unspecified; F31.9 Bipolar disorder, unspecified; E66.01 Morbid (severe) obesity due to excess calories; G43.909 Migraine, unspecified, not intractable, without status migrainosus; Z86.16 Personal history of COVID-19; Z79.899 Other long term (current) drug therapy; Z88.6 Allergy status to analgesic agent; Z88.5 Allergy status to narcotic agent; Z98.890 Other specified postprocedural states; Z87.891 Personal history of nicotine dependence; Z68.41 Body mass index [BMI] 40.0-44.9, adult
CPT/HCPCS: 58662; A9270; J0131; J1100; J1170; J1885; J2405; J2704; J2795; J3010; J3490; J7030; J7120; J0461

== ENCOUNTER 2023-10-22 17:02 | Emergency (ER) | payer MEDICAID ==
[2023-10-22 17:39] LABS: BILIRUBIN,URINE NEGATIVE (NEGATIVE); COLOR,URINE YELLOW; GLUCOSE,URINE NEGATIVE (NEGATIVE); KETONES,URINE NEGATIVE (NEGATIVE); LEUKOCYTE ESTERASE,URINE NEGATIVE (NEGATIVE); NITRITE,URINE POSITIVE (NEGATIVE); OCCULT BLOOD,URINE NEGATIVE (NEGATIVE); PROTEIN,URINE NEGATIVE (NEGATIVE); UROBILINOGEN,URINE 0.2 EU/dL (<2.0)
[2023-10-22] MEDS: Sodium Chloride 0.9% 2.5 ML Syringe FLUSH PRN (18:01)
[2023-10-22] MEDS: Sodium Chloride 0.9% 10 ML Syringe FLUSH PRN (18:01)
[2023-10-22 18:04] LABS: BASOPHILS PERCENT AUTO 0.9 % (0.0-1.0); EOSINOPHILS ABSOLUTE AUTO 0.17 K/uL (0.00-0.45); EOSINOPHILS PERCENT AUTO 1.5 % (0.0-6.0); HEMATOCRIT 40.5 % (37.0-47.0); HEMOGLOBIN 13.3 g/dL (12.0-16.0); IMMATURE GRAN ABSOLUTE AUTO 0.03 K/uL (0.00-0.05); IMMATURE GRAN PERCENT AUTO 0.3 % (0.0-0.4); LYMPHOCYTES ABSOLUTE AUTO 3.58 K/uL (1.00-4.80); LYMPHOCYTES PERCENT AUTO 30.6 % (24.0-44.0); MEAN CORPUSCULAR HEMOGLOBIN 27.3 pg (28.0-32.0); MEAN CORPUSCULAR HGB CONC 32.8 g/dL (32.0-36.0); MEAN CORPUSCULAR VOLUME 83.2 fL (83.0-99.0); MONOCYTES PERCENT AUTO 8.5 % (0.0-8.0); NEUTROPHILS ABSOLUTE AUTO 6.83 K/uL (1.80-7.70); NEUTROPHILS PERCENT AUTO 58.2 % (41.0-71.0); PLATELET COUNT,PLT 315 K/uL (150-400); RED BLOOD CELL COUNT 4.87 M/uL (4.10-5.30); WHITE BLOOD CELL COUNT,WBC 11.71 K/uL (3.9-11.3)
[2023-10-22 18:09] LABS: APPEARANCE,URINE SLT CLOUDY
[2023-10-22 18:19] LABS: EPITHELIAL CELLS,URINE RARE (NONE-FEW); RBC,URINE 0-2 (0-2/HPF)
[2023-10-22 18:20] LABS: BACTERIA,URINE 1+ (NEGATIVE); MUCUS,URINE MODERATE (NONE-MOD)
[2023-10-22 18:51] LABS: A/G RATIO 0.9 (0.9-1.6); ALBUMIN 3.7 g/dL (3.4-5.0); BILIRUBIN TOTAL 0.2 mg/dL (0.2-1.0); CALCIUM 8.6 mg/dL (8.5-10.1); CARBON DIOXIDE,CO2 26.4 mmol/L (21.0-32.0); CREATININE 0.6 mg/dL (0.6-1.0); EST CRCL DRUG DOSING (CG) 118.57 mL/min; POTASSIUM,K 3.9 mmol/L (3.5-5.1); PROTEIN TOTAL,TP 7.8 g/dL (6.4-8.2)
[2023-10-22] MEDS: Iopamidol 755 Mg/ML 100 ML Bottle IVPUSH ONE (19:23)
[2023-10-22] MEDS: Acetaminophen/HYDROcodone 325-5 MG Tab PO ONE (19:55)
[2023-10-22] MEDS: cefTRIAXone 1 GM in Sodium Chloride 0.9% 50 ML IV ONE (20:11)
[2023-10-23 02:50] VITALS: BP 129/75; PULSE 67
== END 2023-10-22 21:00 | disposition home or self-care (01) ==
LOC: MW.ED 17:02
DX: N39.0 Urinary tract infection, site not specified (principal); F17.210 Nicotine dependence, cigarettes, uncomplicated; Z75.8 Other problems related to medical facilities and other health care; Z79.899 Other long term (current) drug therapy; Z88.8 Allergy status to other drugs, medicaments and biological substances; Z88.6 Allergy status to analgesic agent
CPT/HCPCS: 36415; 74177; 76857; 80053; 81001; 81025; 83690; 85025; 87086; 96365; 99284; A9270; J0696; J3490; Q9967

== ENCOUNTER 2024-01-12 14:18 | Emergency (ER) | payer MEDICAID ==
[2024-01-12] MEDS: Sodium Chloride 0.9% 10 ML Syringe FLUSH PRN (15:01)
[2024-01-12] MEDS: Sodium Chloride 0.9% 2.5 ML Syringe FLUSH PRN (15:01)
[2024-01-12 15:12] LABS: BASOPHILS ABSOLUTE AUTO 0.08 K/uL (0.00-0.20); BASOPHILS PERCENT AUTO 0.9 % (0.0-1.0); EOSINOPHILS ABSOLUTE AUTO 0.13 K/uL (0.00-0.45); EOSINOPHILS PERCENT AUTO 1.4 % (0.0-6.0); HEMATOCRIT 40.9 % (37.0-47.0); HEMOGLOBIN 13.5 g/dL (12.0-16.0); IMMATURE GRAN ABSOLUTE AUTO 0.01 K/uL (0.00-0.05); IMMATURE GRAN PERCENT AUTO 0.1 % (0.0-0.4); LYMPHOCYTES ABSOLUTE AUTO 3.11 K/uL (1.00-4.80); MEAN CORPUSCULAR HEMOGLOBIN 28.1 pg (28.0-32.0); MEAN PLATELET VOLUME 9.1 fL (9.4-12.3); MONOCYTES PERCENT AUTO 7.7 % (0.0-8.0); NEUTROPHILS ABSOLUTE AUTO 5.12 K/uL (1.80-7.70); NEUTROPHILS PERCENT AUTO 55.9 % (41.0-71.0); PLATELET COUNT,PLT 343 K/uL (150-400); RED BLOOD CELL COUNT 4.81 M/uL (4.10-5.30); WHITE BLOOD CELL COUNT,WBC 9.15 K/uL (3.9-11.3)
[2024-01-12 15:27] LABS: APPEARANCE,URINE CLEAR; BILIRUBIN,URINE NEGATIVE (NEGATIVE); COLOR,URINE YELLOW; GLUCOSE,URINE NEGATIVE (NEGATIVE); KETONES,URINE NEGATIVE (NEGATIVE); LEUKOCYTE ESTERASE,URINE NEGATIVE (NEGATIVE); NITRITE,URINE NEGATIVE (NEGATIVE); OCCULT BLOOD,URINE NEGATIVE (NEGATIVE); PROTEIN,URINE NEGATIVE (NEGATIVE); UROBILINOGEN,URINE 0.2 EU/dL (<2.0)
[2024-01-12 15:45] LABS: BACTERIA,URINE NOT SEEN (NEGATIVE); EPITHELIAL CELLS,URINE RARE (NONE-FEW); RBC,URINE 0-1 (0-2/HPF); WBC,URINE 0-1 (0-5/HPF)
[2024-01-12 15:52] LABS: CALCIUM 8.7 mg/dL (8.5-10.1); CARBON DIOXIDE,CO2 26.3 mmol/L (21.0-32.0); CREATININE 0.6 mg/dL (0.6-1.0); EST CRCL DRUG DOSING (CG) 118.57 mL/min; POTASSIUM,K 3.8 mmol/L (3.5-5.1)
[2024-01-12] MEDS: Acetaminophen 325 MG Tab PO ONE (16:12)
[2024-01-12 16:53] VITALS: BP 109/64; PULSE 64
== END 2024-01-12 16:52 | disposition home or self-care (01) ==
LOC: MW.ED 14:18
DX: O20.9 Hemorrhage in early pregnancy, unspecified (principal); F17.210 Nicotine dependence, cigarettes, uncomplicated; Z75.8 Other problems related to medical facilities and other health care; Z88.5 Allergy status to narcotic agent; Z88.6 Allergy status to analgesic agent; Z88.8 Allergy status to other drugs, medicaments and biological substances; Z79.899 Other long term (current) drug therapy; Z3A.08 8 weeks gestation of pregnancy
CPT/HCPCS: 36415; 76801; 80048; 81001; 84702; 85025; 86900; 86901; 99284; A9270; J3490; 99283

== ENCOUNTER 2024-02-06 16:50 | Emergency (ER) | payer MEDICAID ==
[2024-02-06 17:51] LABS: APPEARANCE,URINE CLEAR; BILIRUBIN,URINE NEGATIVE (NEGATIVE); COLOR,URINE YELLOW; GLUCOSE,URINE NEGATIVE (NEGATIVE); KETONES,URINE NEGATIVE (NEGATIVE); LEUKOCYTE ESTERASE,URINE NEGATIVE (NEGATIVE); NITRITE,URINE NEGATIVE (NEGATIVE); OCCULT BLOOD,URINE NEGATIVE (NEGATIVE); PROTEIN,URINE NEGATIVE (NEGATIVE); UROBILINOGEN,URINE 0.2 EU/dL (<2.0)
[2024-02-06] MEDS: Ondansetron 4 MG Tab.DIS PO STA (18:18)
[2024-02-06] MEDS: Acetaminophen 500 MG Tab PO STA (18:18)
[2024-02-06 18:23] LABS: BASOPHILS ABSOLUTE AUTO 0.07 K/uL (0.00-0.20); BASOPHILS PERCENT AUTO 0.7 % (0.0-1.0); EOSINOPHILS ABSOLUTE AUTO 0.11 K/uL (0.00-0.45); EOSINOPHILS PERCENT AUTO 1.1 % (0.0-6.0); HEMATOCRIT 38.2 % (37.0-47.0); HEMOGLOBIN 12.6 g/dL (12.0-16.0); IMMATURE GRAN ABSOLUTE AUTO 0.02 K/uL (0.00-0.05); IMMATURE GRAN PERCENT AUTO 0.2 % (0.0-0.4); LYMPHOCYTES ABSOLUTE AUTO 2.89 K/uL (1.00-4.80); LYMPHOCYTES PERCENT AUTO 29.7 % (24.0-44.0); MEAN CORPUSCULAR HEMOGLOBIN 28.5 pg (28.0-32.0); MEAN CORPUSCULAR VOLUME 86.4 fL (83.0-99.0); MEAN PLATELET VOLUME 9.3 fL (9.4-12.3); MONOCYTES PERCENT AUTO 7.2 % (0.0-8.0); NEUTROPHILS ABSOLUTE AUTO 5.94 K/uL (1.80-7.70); NEUTROPHILS PERCENT AUTO 61.1 % (41.0-71.0); PLATELET COUNT,PLT 264 K/uL (150-400); RED BLOOD CELL COUNT 4.42 M/uL (4.10-5.30); WHITE BLOOD CELL COUNT,WBC 9.73 K/uL (3.9-11.3)
[2024-02-06 18:49] LABS: A/G RATIO 0.9 (0.9-1.6); ALBUMIN 3.4 g/dL (3.4-5.0); BILIRUBIN TOTAL 0.3 mg/dL (0.2-1.0); CALCIUM 8.7 mg/dL (8.5-10.1); CARBON DIOXIDE,CO2 24.6 mmol/L (21.0-32.0); CREATININE 0.5 mg/dL (0.6-1.0); EST CRCL DRUG DOSING (CG) 142.28 mL/min; POTASSIUM,K 3.9 mmol/L (3.5-5.1); PROTEIN TOTAL,TP 7.2 g/dL (6.4-8.2)
[2024-02-06 19:01] VITALS: BP 98/49; PULSE 67
== END 2024-02-06 19:35 | disposition home or self-care (01) ==
LOC: MW.ED 16:50
DX: O20.0 Threatened abortion (principal); Z88.5 Allergy status to narcotic agent; Z88.8 Allergy status to other drugs, medicaments and biological substances; Z79.899 Other long term (current) drug therapy; Z90.49 Acquired absence of other specified parts of digestive tract; Z75.8 Other problems related to medical facilities and other health care; Z3A.10 10 weeks gestation of pregnancy
CPT/HCPCS: 36415; 76801; 80053; 81003; 83690; 84702; 85025; 99284; A9270; 99283

== ENCOUNTER → 2024-02-07 | Emergency (ER) | payer MEDICAID ==
[~2024-02-07] MED LIST changes: -Albuterol 0.083% 2.5 MG/3 ML Neb Soln NEB PRN; -HYDROmorphone 1 MG/ML Syringe IVPUSH PRN; -Metoclopramide 10 MG/2 ML SDV IVPUSH PRN; -Morphine 2 MG/ML SYRINGE IVPUSH PRN; +Morphine 4 MG/ML Syringe ONE; -Naloxone 0.4 MG/ML SDV IVPUSH PRN; -Ondansetron 4 MG/2 ML SDV IVPUSH PRN; +Ondansetron 4 MG/2 ML SDV ONE; -fentaNYL 50 MCG/ML SDV IVPUSH PRN
[2024-02-07 11:32] LABS: BASOPHILS ABSOLUTE AUTO 0.06 K/uL (0.00-0.20); BASOPHILS PERCENT AUTO 0.4 % (0.0-1.0); EOSINOPHILS ABSOLUTE AUTO 0.05 K/uL (0.00-0.45); EOSINOPHILS PERCENT AUTO 0.4 % (0.0-6.0); HEMATOCRIT 38.4 % (37.0-47.0); HEMOGLOBIN 12.6 g/dL (12.0-16.0); IMMATURE GRAN ABSOLUTE AUTO 0.04 K/uL (0.00-0.05); IMMATURE GRAN PERCENT AUTO 0.3 % (0.0-0.4); LYMPHOCYTES ABSOLUTE AUTO 1.77 K/uL (1.00-4.80); LYMPHOCYTES PERCENT AUTO 12.5 % (24.0-44.0); MEAN CORPUSCULAR HEMOGLOBIN 28.3 pg (28.0-32.0); MEAN CORPUSCULAR HGB CONC 32.8 g/dL (32.0-36.0); MEAN CORPUSCULAR VOLUME 86.1 fL (83.0-99.0); MEAN PLATELET VOLUME 8.9 fL (9.4-12.3); MONOCYTES ABSOLUTE AUTO 0.77 K/uL (0.00-0.80); MONOCYTES PERCENT AUTO 5.4 % (0.0-8.0); NEUTROPHILS ABSOLUTE AUTO 11.47 K/uL (1.80-7.70); PLATELET COUNT,PLT 269 K/uL (150-400); RED BLOOD CELL COUNT 4.46 M/uL (4.10-5.30); WHITE BLOOD CELL COUNT,WBC 14.16 K/uL (3.9-11.3)
[2024-02-07] MEDS: Morphine 4 MG/ML Syringe IVPUSH STA ×3 (11:32→13:37)
[2024-02-07] MEDS: Sodium Chloride 0.9% 1,000 ML IV STA (11:32)
[2024-02-07] MEDS: Ondansetron 4 MG/2 ML SDV IVPUSH STA (11:32)
[2024-02-07 12:02] LABS: A/G RATIO 1.1 (0.9-1.6); ALANINE AMINOTRANSFERASE,ALT 20 IU/L (14-63); ALBUMIN 3.6 g/dL (3.4-5.0); ALKALINE PHOSPHATASE 56 U/L (46-116); ASPARTATE AMNIOTRANSFERASE,AST 19 IU/L (15-37); BILIRUBIN TOTAL 0.5 mg/dL (0.2-1.0); BLOOD UREA NITROGEN,BUN 5 mg/dL (7.0-18.0); CALCIUM 8.2 mg/dL (8.5-10.1); CARBON DIOXIDE,CO2 25.3 mmol/L (21.0-32.0); CHLORIDE,CL 106 mmol/L (98-107); CREATININE 0.6 mg/dL (0.6-1.0); GLUCOSE RANDOM 94 mg/dL (74-106); SODIUM,NA 141 mmol/L (136-145)
[2024-02-07 12:13] LABS: ESTIMATED GFR 128 mL/min (>60)
[2024-02-07 13:35] VITALS: BP 115/59; PULSE 80
== END | disposition home or self-care (01) ==
LOC: MW.ED 10:20
DX: O03.9 Complete or unspecified spontaneous abortion without complication (principal); Z88.8 Allergy status to other drugs, medicaments and biological substances; Z75.8 Other problems related to medical facilities and other health care
CPT/HCPCS: 36415; 80053; 84702; 85025; 96374; 96375; 96376; 99284; J2270; J2405; J7030

== ENCOUNTER 2024-02-13 06:32 | Day surgery (SDC) | payer MEDICAID ==
[2024-02-13 07:00] LABS: HEMATOCRIT 28.3 % (37.0-47.0); HEMOGLOBIN 9.4 g/dL (12.0-16.0); MEAN CORPUSCULAR HEMOGLOBIN 28.2 pg (28.0-32.0); MEAN CORPUSCULAR HGB CONC 33.2 g/dL (32.0-36.0); MEAN PLATELET VOLUME 8.8 fL (9.4-12.3); PLATELET COUNT,PLT 346 K/uL (150-400); RED BLOOD CELL COUNT 3.33 M/uL (4.10-5.30); WHITE BLOOD CELL COUNT,WBC 8.99 K/uL (3.9-11.3)
[2024-02-13] MEDS ORDERED: propofoL 50 ML ONE (07:21)
[2024-02-13] MEDS ORDERED: fentaNYL 100 MCG/2 ML SDV ONE (07:21)
[2024-02-13] MEDS ORDERED: Water For Injection, Sterile 20 ML ONE (07:22)
[2024-02-13] MEDS ORDERED: dexmedeTOMIDine HCl 200 MCG/2 ML SDV ONE (07:22)
[2024-02-13] MEDS: Lactated Ringers 1,000 ML IV SCH (07:55)
[2024-02-13] MEDS ORDERED: Azithromycin 500 MG Vial ONE (07:56)
[2024-02-13] MEDS ORDERED: Metoclopramide 10 MG/2 ML SDV IVPUSH PRN (08:00)
[2024-02-13] MEDS ORDERED: Ondansetron 4 MG/2 ML SDV IVPUSH PRN (08:00)
[2024-02-13] MEDS ORDERED: Albuterol 0.083% 2.5 MG/3 ML Neb Soln NEB PRN (08:00)
[2024-02-13] MEDS ORDERED: HYDROmorphone 1 MG/ML Syringe IVPUSH PRN (08:00)
[2024-02-13] MEDS ORDERED: Naloxone 0.4 MG/ML SDV IVPUSH PRN (08:00)
[2024-02-13] MEDS ORDERED: Morphine 2 MG/ML SYRINGE IVPUSH PRN (08:00)
[2024-02-13] MEDS ORDERED: droPERidol 5 MG/2 ML SDV IVPUSH PRN (08:00)
[2024-02-13] MEDS ORDERED: Succinylcholine/Sod PF 100 MG/5 ML SYRINGE IV ONE (08:01)
[2024-02-13] MEDS ORDERED: Dexamethasone 4 MG/ML 5 ML MDV ONE (08:08)
[2024-02-13] MEDS ORDERED: Ondansetron 4 MG/2 ML SDV ONE (08:08)
[2024-02-13] MEDS ORDERED: Tranexamic Acid 1,000 MG/10 ML Vial ONE (08:13)
[2024-02-13] MEDS ORDERED: Methylergonovine 0.2 MG/1 ML Amp ONE (08:15)
[2024-02-13] MEDS ORDERED: Propofol 200 MG/20 ML SDV ONE (08:19)
[2024-02-13] MEDS: fentaNYL 50 MCG/ML SDV IVPUSH PRN (09:06)
[2024-02-13] MEDS ORDERED: Morphine 10 MG/ML SDV ONE (09:28)
[2024-02-13] MEDS: oxyCODONE 5 MG Tab PO ONE (10:36)
[2024-02-13] MEDS: oxyCODONE 5 MG Tab ONE (11:10)
[2024-02-13 12:07] VITALS: BP 128/73; PULSE 69
== END 2024-02-13 11:23 | disposition home or self-care (01) ==
LOC: MW.SDS 06:32
PROVIDERS: ATTEND Obstetrics & Gynecology
DX: O03.1 Delayed or excessive hemorrhage following incomplete spontaneous abortion (principal); F31.9 Bipolar disorder, unspecified; K21.9 Gastro-esophageal reflux disease without esophagitis; F17.210 Nicotine dependence, cigarettes, uncomplicated
CPT/HCPCS: 36415; 59812; 85027; 86850; 86900; 86901; A9270; C1729; J0131; J0330; J0456; J1100; J2210; J2270; J2405; J2704; J3010; J7120; 01965; J3490

== ENCOUNTER 2025-02-12 05:16 | Inpatient (IN) | payer MEDICAID ==
[2025-02-12] MEDS ORDERED: Sodium Chloride 0.9% 10 ML Syringe FLUSH PRN ×2 (05:29→13:07)
[2025-02-12] MEDS ORDERED: Sodium Chloride 0.9% 2.5 ML Syringe FLUSH PRN ×2 (05:29→13:07)
[2025-02-12] MEDS ORDERED: Citric Acid/Sodium Citrate Solution 30 ML Cup PO ONE (05:29)
[2025-02-12] MEDS ORDERED: Oxytocin/0.9 % Sodium Chloride 30 UNIT/500 ML BAG IV SCH ×2 (05:30→13:15)
[2025-02-12] MEDS: Lactated Ringers 1,000 ML IV SCH (05:48)
[2025-02-12 06:26] LABS: MEAN PLATELET VOLUME 9.5 fL (9.4-12.3); NRBC ABSOLUTE 0.00 K/uL (0.00-0.02); NRBC PERCENT 0.0 /100WBC (0.0-0.2); PLATELET COUNT,PLT 255 K/uL (150-400); RED BLOOD CELL COUNT 4.03 M/uL (4.10-5.30); WHITE BLOOD CELL COUNT,WBC 15.39 K/uL (3.9-11.3)
[2025-02-12] MEDS ORDERED: fentaNYL 100 MCG/2 ML SDV ONE (06:35)
[2025-02-12] MEDS ORDERED: ePHEDrine 50 MG/ML SDV ONE (06:36)
[2025-02-12] MEDS ORDERED: Ondansetron 4 MG/2 ML SDV ONE (06:36)
[2025-02-12] MEDS ORDERED: Phenylephrine 1% 10 MG/ML SDV ONE (06:36)
[2025-02-12] MEDS ORDERED: Oxytocin 10 Units/1 ML SDV ONE (06:36)
[2025-02-12] MEDS ORDERED: dexmedeTOMIDine HCl 200 MCG/2 ML SDV ONE (06:36)
[2025-02-12] MEDS ORDERED: Dexamethasone 4 MG/ML 5 ML MDV ONE (06:36)
[2025-02-12] MEDS ORDERED: Morphine PF 10 MG/10 ML SDV ONE (06:36)
[2025-02-12] MEDS ORDERED: Ropivacaine 0.5% 5 MG/ML 30 ML SDV ONE (06:36)
[2025-02-12] MEDS ORDERED: Albuterol 0.083% 2.5 MG/3 ML Neb Soln NEB PRN (06:57)
[2025-02-12] MEDS ORDERED: fentaNYL 100 MCG/2 ML SDV IVPUSH PRN (06:57)
[2025-02-12] MEDS ORDERED: fentaNYL 50 MCG/ML SDV IVPUSH PRN (06:57)
[2025-02-12] MEDS ORDERED: Naloxone 0.4 MG/ML SDV IVPUSH PRN (06:57)
[2025-02-12] MEDS ORDERED: Ondansetron 4 MG/2 ML SDV IVPUSH PRN (06:57)
[2025-02-12] MEDS ORDERED: ceFAZolin 2 GM in Water For Injection, Sterile 20 ML IVPUSH ONE (08:00)
[2025-02-12] MEDS ORDERED: Propofol 200 MG/20 ML SDV ONE (08:14)
[2025-02-12] MEDS: Ondansetron 4 MG/2 ML SDV IVPUSH PRN ×2 (10:45→19:47)
[2025-02-12] MEDS ORDERED: Diphtheria,Pertussis(Acell),Tetanus Vaccine 0.5 ML Syringe IM ONE (13:07)
[2025-02-12] MEDS ORDERED: Measles, Mumps & Rubella Vaccine 0.5 ML SDV SUBCUT ONE (13:07)
[2025-02-12] MEDS ORDERED: Carboprost Tromethamine 250 MCG/1 mL Vial IM PRN (13:07)
[2025-02-12] MEDS ORDERED: 50% Dextrose in Water 50 ML Syringe IVPUSH PRN (14:06)
[2025-02-12] MEDS: diphenhydrAMINE 50 MG/ML SDV IVPUSH PRN (14:11)
[2025-02-12] MEDS: Ketorolac 30 MG/ML SDV IVPUSH SCH (14:13)
[2025-02-12] MEDS: Lanolin 100% Cream 7 GM Tube TOP PRN (19:48)
[2025-02-12] MEDS: Nalbuphine 10 MG/1 ML Vial IVPUSH PRN (20:30)
[2025-02-12] MEDS: Acetaminophen/oxyCODONE 325-5 MG Tab PO PRN (20:31)
[2025-02-13 05:33] LABS: MEAN PLATELET VOLUME 9.3 fL (9.4-12.3); NRBC ABSOLUTE 0.00 K/uL (0.00-0.02); NRBC PERCENT 0.0 /100WBC (0.0-0.2); PLATELET COUNT,PLT 242 K/uL (150-400); RED BLOOD CELL COUNT 3.72 M/uL (4.10-5.30); WHITE BLOOD CELL COUNT,WBC 16.58 K/uL (3.9-11.3)
[2025-02-13 05:57] LABS: LYMPHOCYTES ABSOLUTE MAN 4.31 K/uL (1.00-4.80); LYMPHOCYTES PERCENT MAN 26 % (24-44); MONOCYTES ABSOLUTE MAN 1.82 K/uL (0.00-0.80); MONOCYTES PERCENT MAN 11 % (0-8); SEG NEUTROPHILS ABSOLUTE MAN 10.45 K/uL (1.80-7.70); SEG NEUTROPHILS PERCENT MAN 63 % (41-71)
[2025-02-13 15:51] VITALS: BP 94/54; PULSE 62
== END 2025-02-13 19:04 | disposition home or self-care (01) | DRG 788 ==
LOC: MW.OB 05:16 → OBSVTOIN 05:29 → MW.OB 11:20 → EDSTATUS 02-19 16:04
PROVIDERS: ADMIT Obstetrics & Gynecology Obstetrics; ATTEND Obstetrics & Gynecology Obstetrics
PROC: 10D00Z1 Extraction of Products of Conception, Low, Open Approach (ICD-10-PCS; principal; 2025-02-12 08:00)
DX: O34.211 Maternal care for low transverse scar from previous cesarean delivery (principal); O99.334 Smoking (tobacco) complicating childbirth; O99.214 Obesity complicating childbirth; E66.01 Morbid (severe) obesity due to excess calories; Z3A.39 39 weeks gestation of pregnancy; Z37.0 Single live birth; Z88.8 Allergy status to other drugs, medicaments and biological substances; Z90.89 Acquired absence of other organs; Z98.890 Other specified postprocedural states; Z90.49 Acquired absence of other specified parts of digestive tract
CPT/HCPCS: 36415; 85025; 85027; 86592; 86850; 86900; 86901; A9270-GY; J0690; J1100; J1200; J1790; J1885; J2274; J2300; J2371; J2405; J2590; J2704; J2765; J2795; J3010; J3490; J7120